=== PATIENT | male | born 1960 | race African-American/Black ===

== ENCOUNTER 2023-11-01 19:53 | Emergency (ER) | payer MEDICAID ==
[2023-11-02] MEDS ORDERED: ACET-2708 MT (22:06)
== END 2023-11-01 21:00 | disposition left against medical advice (07) ==
LOC: ER 19:53
DX: R68.89 Other general symptoms and signs (principal); Z53.21 Procedure and treatment not carried out due to patient leaving prior to being seen by health care provider

== ENCOUNTER 2023-11-01 20:09 | Emergency (ER) | payer MEDICAID ==
[~2023-11-01] VITALS: Ht 175.3 cm; Wt 69.0 kg
[2023-11-01 20:11] VITALS: PULSE 91; O2SAT 99
[2023-11-01 20:16] VITALS: BP 144/97; RESP 20; TEMP 98.3; O2SAT 100
[2023-11-02] MEDS ORDERED: ACET-2708 MT (22:06)
== END 2023-11-01 23:04 | disposition home or self-care (01) ==
LOC: ER 20:09
DX: G89.29 Other chronic pain (principal); M54.9 Dorsalgia, unspecified; I10 Essential (primary) hypertension
CPT/HCPCS: 99281

== ENCOUNTER 2023-11-02 19:42 | Emergency (ER) | payer MEDICAID ==
[~2023-11-02] VITALS: Ht 170.2 cm; Wt 79.0 kg
[2023-11-02 19:52] VITALS: O2SAT 99
[2023-11-02] MEDS ORDERED: ACET-2708 MT (22:06)
[2023-11-02] MEDS: HYDROCODONE/ACETAMINOPHEN 5/325MG TABLET PO ONE ×2 (22:46)
[2023-11-02 22:58] VITALS: BP 179/82; PULSE 88; RESP 14; TEMP 36.89184; O2SAT 99
== END 2023-11-02 23:04 | disposition home or self-care (01) ==
LOC: ER 19:42
DX: M79.605 Pain in left leg (principal); I10 Essential (primary) hypertension
CPT/HCPCS: 93971; 99284

== ENCOUNTER 2024-11-02 19:33 | Emergency (ER) | payer MEDICAID ==
[~2024-11-02] VITALS: Ht 175.3 cm; Wt 82.0 kg
[~2024-11-02 19:33] MED LIST: ACET-2708 MT
[2024-11-02 19:38] VITALS: O2SAT 97
[2024-11-02] MEDS ORDERED: LIDO700A30 TP (21:20)
[2024-11-02] MEDS: KETOROLAC 15MG/ML VIAL IM ONE (21:26)
[2024-11-02] MEDS: HYDROCODONE/ACETAMINOPHEN 10/325MG TABLET PO ONE (21:27)
[2024-11-02] MEDS: LIDOCAINE 5% PATCH TOP SCH (21:27)
[2024-11-02 21:38] VITALS: BP 132/71; PULSE 87; RESP 14; TEMP 36.6; O2SAT 97
== END 2024-11-02 21:39 | disposition home or self-care (01) ==
LOC: ER 19:33
DX: G89.29 Other chronic pain (principal); M54.50 Low back pain, unspecified; F11.23 Opioid dependence with withdrawal; I10 Essential (primary) hypertension; Z86.718 Personal history of other venous thrombosis and embolism
CPT/HCPCS: 99283; 96372; J1885